=== PATIENT | female | born 1960 | race Asian ===

== ENCOUNTER 2019-03-19 09:39 | Emergency (ER) | payer MEDICAID ==
[~2019-03-19] VITALS: Ht 154.9 cm; Wt 83.6 kg
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
--- NOTE | 2019-03-19 10:25 | NUR ---
BEDSIDE REPORT TO FRANCESCO FERRARI RN.
[2019-03-19] MEDS ORDERED: KETOROLAC 30 MG/1 ML ONE (10:56)
[2019-03-19] MEDS ORDERED: ASPIRIN 81 MG TABLET CHEW ONE (10:57)
[2019-03-19] MEDS ORDERED: KETOROLAC 30 MG/1 ML IVPush ONE (11:00)
[2019-03-19] MEDS ORDERED: SODIUM CHLORIDE FLUSH 10ML SYR IVF ONE (11:00)
[2019-03-19] MEDS ORDERED: ASPIRIN 81 MG TABLET CHEW PO ONE (11:00)
--- NOTE | 2019-03-19 11:09 | NUR ---
PT MEDICATED PER ORDER. LIGHTS DIMMED IN ROOM AND CALL LIGHT IN REACH
[2019-03-19 11:10] LABS: BASOPHILS # (AUTO) 0.06 x10^3/uL (0-0.1); BASOPHILS % (AUTO) 1 % (0-1); EOSINOPHILS # (AUTO) 0.38 x10^3/uL (0-0.4); EOSINOPHILS % (AUTO) 4 % (1-7); LYMPHOCYTES # (AUTO) 2.46 x10^3/uL (1-3.4); LYMPHOCYTES % (AUTO) 28 % (22-44); MD NO; MEAN CORPUSCULAR HEMOGLOBIN 27.9 pg (27.0-34.8); MEAN CORPUSCULAR HGB CONC 32.6 g/dL (32.4-35.8); MEAN CORPUSCULAR VOLUME 85.7 fL (80-100); MEAN PLATELET VOLUME 8.1 fL (7.4-10.4); MONOCYTES # (AUTO) 0.46 x10^3/uL (0.2-0.8); MONOCYTES % (AUTO) 5 % (2-9); NEUTROPHILS # (AUTO) 5.46 x10^3/uL (1.8-6.8); NEUTROPHILS % (AUTO) 62 % (42-75); PLATELET COUNT 261 x10^3/uL (130-400); RED BLOOD COUNT 4.57 x10^6/uL (3.82-5.3); RED CELL DISTRIBUTION WIDTH 13.5 % (9.6-15.2)
[2019-03-19 11:21] LABS: ALBUMIN 3.4 g/dL (3.4-5.0); ANION GAP 5 mmol/L (5-15); CALCIUM 8.9 mg/dL (8.5-10.1); CHLORIDE 110 mmol/L (98-107)
[2019-03-19 11:28] LABS: CREATININE 0.72 mg/dL (0.55-1.02)
[2019-03-19 11:29] LABS: TROPONIN I < 0.015 ng/mL (0.000-0.045)
[2019-03-19 12:35] VITALS: BP 109/66
--- NOTE | 2019-03-19 12:38 | NUR ---
LATE NOTE 1150-POSITIVE REIEF OF PAIN POST MEDICATION.
== END 2019-03-19 12:43 | disposition home or self-care (01) ==
LOC: ED 11:30
DX: R07.89 Other chest pain (principal)
CPT/HCPCS: 36415; 71045; 80048; 82040; 84484; 85025; 85379; 93005; 96374; 99284; J1885